=== PATIENT | female | born 1995 | race Caucasian/White ===

== ENCOUNTER 2021-06-18 05:04 | Emergency (ER) | payer OTHER ==
[2021-06-18] MEDS ORDERED: PREDNISONE 50 M50 MG PO (05:32)
[2021-06-18] MEDS ORDERED: PEPCID40 MG PO (05:32)
[2021-06-18] MEDS ORDERED: BENADRYL 50MG C50 MG PO (05:32)
== END 2021-06-18 06:50 | disposition home or self-care (01) ==
LOC: ER1 05:04
DX: R22.0 Localized swelling, mass and lump, head (principal); T80.62XA Other serum reaction due to vaccination, initial encounter; E11.9 Type 2 diabetes mellitus without complications
CPT/HCPCS: 96374; 96375; 99283; J1200; J2930